=== PATIENT | female | born 1980 | race Caucasian/White ===

== ENCOUNTER 2019-08-21 14:31 | Outpatient (CLI) | payer OTHER ==
--- NOTE | 2019-08-21 16:43 | Mammography Report ---
Reason: HX OF ABNORMAL MAMMOGRAM Procedure Date: 08/21/2019 Accession Number: [id number] / [id number] Procedure: JUSTYN - Diagnostic Dig Bilat CPT Code: Final Report FULL RESULT: EXAM: Diagnostic Dig Bilat DATE: 08/21/2019 3:26 PM CLINICAL HISTORY: Diagnostic examination. Reported history of left breast lump. TECHNIQUE: (B) - Bilateral CC and MLO views were obtained. Left ML images are obtained. COMPARISON: None PARENCHYMAL PATTERN: (A) - The breast(s) demonstrate(s) scattered fibroglandular densities. FINDINGS: There are no suspicious masses, calcifications, or areas of distortion. IMPRESSION: Negative examination. BI-RADS category 1. RECOMMENDATION: (ANNUAL) - Recommend routine annual screening mammography. BI-RADS CATEGORY: (1) - Negative. STANDARD QUALIFYING STATEMENTS: 1. This examination was not reviewed with the aid of Computer-Aided Detection (CAD). 2. A negative or benign imaging report should not preclude biopsy if clinically suspicious findings are present. 3. Dense breasts may obscure an underlying neoplasm. 4. This examination was reviewed without the aid of 3D breast imaging (tomosynthesis).
== END 2019-08-21 14:32 | disposition home or self-care (01) ==
LOC: DI 14:31
PROVIDERS: ATTEND General Practice
DX: R92.8 Other abnormal and inconclusive findings on diagnostic imaging of breast (principal)
CPT/HCPCS: 77066

== ENCOUNTER 2021-08-30 11:18 | Outpatient (CLI) | payer OTHER ==
--- NOTE | 2021-08-31 08:19 | Mammography Report ---
BILATERAL DIGITAL SCREENING MAMMOGRAM 3D/2D: 08/30/2021 CLINICAL: Routine screening. Comparison is made to exam dated: 08/21/2019 mammogram - [facility]. There are sc attered fibroglandular elements in both breasts. There is an oval low density focal asymmetry with an indistinct and circumscribed margin in the right breast at 6 o'clock middle depth. No other significant masses, calcifications, or other findings are seen in either breast. IMPRESSION: INCOMPLETE: NEEDS ADDITIONAL IMAGING EVALUATION The oval low density focal asymmetry in the right breast is indeterminate. Mediolateral and spot com pression views as well as additional views with possible ultrasound are recommended. This exam was interpreted at Station ID: [id number]. NOTE: For mammograms, a report in lay terms will be sent to the patient. Approximately 15% of breast malignancies will not be visualized mammographically. In the management of a palpable breast mass, a negative mammogram must not discourage biopsy of a clinically suspicious lesion. Electronically Signed By: Chuck al/deysi:08/30/2021 12:34:55 ACR BI-RADS Category 0: Incomplete 3340F PARENCHYMAL PATTERN: (A) - The breast(s) demonstrate(s) scattered fibroglandular densities. BI-RADS CATEGORY: (0) - 0 Mammo and [place] [id number] Immediate follow-up LATERALITY: (B)
== END 2021-08-30 11:19 | disposition home or self-care (01) ==
LOC: DI.N 11:18
DX: Z12.31 Encounter for screening mammogram for malignant neoplasm of breast (principal); R92.8 Other abnormal and inconclusive findings on diagnostic imaging of breast

== ENCOUNTER 2021-09-29 10:48 | Outpatient (CLI) | payer OTHER ==
--- NOTE | 2021-09-30 12:04 | Ultrasound Report ---
LIMITED ULTRASOUND OF RIGHT BREAST AND AXILLA: 09/29/2021 CLINICAL: Patient returns today to evaluate a focal asymmetry in the right breast. Comparison is made to exams dated: 09/29/2021 mammogram, 08/30/2021 mammogram, and 08/21/2019 mammog [facility]. Color flow and real-time ultrasound of the right breast 4-8 o'clock, and axilla regions were performe d. Ren scale images of the real-time examination were reviewed. There is a 0.4 cm x 0.3 cm x 0.2 cm oval mass with a circumscribed margin in the right breast at 7 o' clock middle depth 7 cm from the nipple. This oval mass is hypoechoic. This correlates with mammogr aphy findings. Color flow imaging demonstrates that there is no vascularity present. There also is a 0.7 cm x 0.6 cm x 0.2 cm oval cyst with a septated internal wall in the right breast at 8 o'clock posterior depth 8 cm from the nipple. This oval cyst is hypoechoic. This correlates as an incidental finding. Color flow imaging demonstrates that there is no vascularity present. No significant abnormalities were seen sonographically in the right axilla. IMPRESSION: PROBABLY BENIGN The 0.4 cm x 0.3 cm x 0.2 cm oval mass in the right breast at 7 o'clock middle depth most likely is a complicated cyst or a lymph node and is probably benign. The 0.7 cm x 0.6 cm x 0.2 cm oval cyst in the right breast at 8 o'clock posterior depth is consistent with a complicated cyst and is probably benign. A follow-up right mammogram and an ultrasound in 6 months is recommended to demonstrate stability. This exam was interpreted at Station ID: [id number]. Electronically Signed By: Keon tee/deysi:09/29/2021 12:58:42 Ultrasound BI-RADS: 3 Probably benign BI-RADS CATEGORY: (3) - 3 Mammo and [place] [id number] 6 month follow-up LATERALITY: (R)
--- NOTE | 2021-09-30 12:04 | Mammography Report ---
UNILATERAL RIGHT DIGITAL DIAGNOSTIC MAMMOGRAM 3D/2D: 09/29/2021 CLINICAL: Patient returns today to evaluate a focal asymmetry in the right breast. Comparison is made to exams dated: 08/30/2021 mammogram, 08/21/2019 mammogram - [facility], and 05/11/2015 ultrasound - [facility]. There are scat tered fibroglandular elements in right breast. There is a 0.5 cm irregular focal asymmetry in the right breast at 6 o'clock middle depth. This is s een in additional views. A few additional small focal asymmetries are seen in the inferior right br east, which appear to be stable when compared to the prior exam from 2019 given differences between d igital mammography and tomosynthesis. No other significant masses or calcifications are seen in the breast. IMPRESSION: INCOMPLETE: NEEDS ADDITIONAL IMAGING EVALUATION The 0.5 cm irregular focal asymmetry in the right breast resembles a lymph node and is indeterminate. An ultrasound is recommended. This exam was interpreted at Station ID: [id number]. NOTE: For mammograms, a report in lay terms will be sent to the patient. Approximately 15% of breast malignancies will not be visualized mammographically. In the management of a palpable breast mass, a negative mammogram must not discourage biopsy of a clinically suspicious lesion. Electronically Signed By: Keon tee/deysi:09/29/2021 12:56:00 ACR BI-RADS Category 0: Incomplete 3340F PARENCHYMAL PATTERN: (A) - The breast(s) demonstrate(s) scattered fibroglandular densities. BI-RADS CATEGORY: (0) - 0 Ultrasound [id number] Immediate follow-up LATERALITY: (R)
== END 2021-09-29 10:49 | disposition home or self-care (01) ==
LOC: DI 10:48
PROVIDERS: ATTEND Student in an Organized Health Care Education/Training Program
DX: R92.8 Other abnormal and inconclusive findings on diagnostic imaging of breast (principal)

== ENCOUNTER 2021-11-16 13:32 | Outpatient (CLI) | payer OTHER ==
[2021-11-16] MEDS ORDERED: GADOBUTROL 10 MMOL/10 ML VIAL ONE (13:50)
--- NOTE | 2021-11-16 16:03 | MRI Report ---
PROCEDURE: Brain W/WO INDICATIONS: HYPERPROLACTINEMIA CONTRAST: IV CONTRAST: Gadavist ml: 8.6 TECHNIQUE: Noncontrast axial T1 spin echo, axial T2 fast spin echo, sagittal and axial FLAIR, coronal T2 fast sp in echo, axial gradient echo, axial diffusion and ADC through the brain. After the administration of contrast, axial and coronal T1 spin echo with fat saturation through the brain. COMPARISON: None. FINDINGS: Image quality: Excellent. CSF spaces: Basal cisterns are patent. No extra-axial fluid collections. Ventricles are normal in size and shape. Brain: No midline shift. No intracranial bleeds or masses. No abnormal intracranial enhancement. There is cerebral volume loss for age. There is periventricular white matter chronic small vessel is chemic change. The brainstem appears normal. Diffusion-weighted images demonstrate no acute ischemi c insults. No chronic ischemic insults. Normal intravascular flow voids are present. Skull and face: Calvarial marrow is normal in signal. Orbits appear normal. Sinuses: Sinuses and mastoids appear clear. IMPRESSION: Normal MRI of the brain and pituitary. Reviewed by: Maximiliano Shea MD on 11/16/2021 4:02 PM PST Approved by: Maximiliano Shea MD on 11/16/2021 4:02 PM PST Station ID: [id number]
[2021-11-17] MEDS ORDERED: GADOBUTROL 10 MMOL/10 ML VIAL IVP ONE (16:15)
== END 2021-11-16 13:33 | disposition home or self-care (01) ==
LOC: DI 13:32
PROVIDERS: ATTEND Advanced Practice Midwife
DX: E22.1 Hyperprolactinemia (principal)
CPT/HCPCS: 70553; A9585

== ENCOUNTER 2023-01-09 10:51 | Outpatient (CLI) | payer OTHER | END 2023-01-09 23:59 | disposition EMS.NT | LOC: EMS 10:51 | DX: R07.9 Chest pain, unspecified (principal); R06.02 Shortness of breath; R20.0 Anesthesia of skin; F41.9 Anxiety disorder, unspecified ==

== ENCOUNTER 2023-01-09 11:54 | Emergency (ER) | payer OTHER ==
--- NOTE | 2023-01-09 12:32 | ED Physician Documentation ---
History of Present Illness - Stated complaint Stated Complaint: SOA,DAZED,HIGH HEART RATE - Chief complaint Chief Complaint: General - History obtained from History obtained from: Patient - Additonal information Additional information: 42-year-old woman with history of hypertension, tubal ligation started to feel ill this morning around 830 with lightheadedness, sweatiness, shortness of breath especially when supine and she noted tachycardia as on her watch as high as in the 150s without other alarms noting that it is an apple iWatch 8. She had a recent right ankle injury. No calf pain or though and no history of thromboembolic disease. PD PAST MEDICAL HISTORY - Allergies Allergies/Adverse Reactions: Allergies Allergy/AdvReac Type Severity Reaction Status Date / Time No Known Drug Allergies Allergy Verified 01/09/23 12:03 PD ED PE NORMAL - Vitals Vital signs reviewed: Yes - General General: Alert and oriented X 3, No acute distress - HEENT HEENT: PERRL, EOMI - Neck Neck: Supple, no meningeal sign, No bony TTP - Cardiac Cardiac: RRR, No murmur - Respiratory Respiratory: No respiratory distress, Clear bilaterally - Abdomen Abdomen: Non tender - Extremities Extremities: No edema, No calf tenderness / cord - Neuro Neuro: Alert and oriented X 3, Normal speech Results - Vitals Vitals: Vital Signs - 24 hr 01/09/23 01/09/23 01/09/23 12:03 12:33 13:08 Temperature 36.8 C Heart Rate 86 69 65 Respiratory 24 21 21 Rate Blood Pressure 130/87 H 134/83 H 124/76 O2 Saturation 100 100 100 01/09/23 01/09/23 13:48 14:41 Temperature Heart Rate 59 L 64 Respiratory 19 16 Rate Blood Pressure 121/100 H 105/72 O2 Saturation 96 99 Oxygen O2 Source Room air - EKG (time done) 1206 EKG releavant findings:: EKG personally interpreted by author of this note. Relevant findings are: Rate: Rate (enter#) (86) Rhythm: NSR [place]: Normal Intervals: Normal AK QRS: Normal Ischemia: Normal ST segments - Labs Labs: Laboratory Tests 01/09/23 01/09/23 01/09/23 12:32 12:32 12:32 WBC 10.1 RBC 3.93 L Hgb 12.7 Hct 38.9 MCV 99.0 MCH 32.3 H MCHC 32.6 RDW 13.2 Plt Count 352 MPV 9.2 Neut # (Auto) 7.0 H Lymph # (Auto) 2.3 [place] # (Auto) 0.7 Eos # (Auto) 0.1 Baso # (Auto) 0.1 Absolute Nucleated RBC 0.00 Nucleated RBC % 0.0 D-Dimer VBG pH 7.442 H VBG pCO2 34.2 L VBG pO2 42.9 VBG HCO3 22.8 L VBG Total CO2 23.9 L VBG O2 Saturation 82.9 H VBG Base Excess -0.7 Sodium 139 Potassium 3.8 Chloride 108 Carbon Dioxide 24 Anion Gap 7.0 BUN 9 Creatinine 0.5 Estimated GFR (MDRD) 135 Glucose 124 H Calcium 9.5 Magnesium 1.5 L Total Bilirubin 0.2 AST 20 ALT 18 Alkaline Phosphatase 44 Troponin I High Sens Total Protein 6.7 Albumin 3.9 Globulin 2.8 Albumin/Globulin Ratio 1.4 01/09/23 01/09/23 12:32 12:32 WBC RBC Hgb Hct MCV MCH MCHC RDW Plt Count MPV Neut # (Auto) Lymph # (Auto) [place]quois # (Auto) Eos # (Auto) Baso # (Auto) Absolute Nucleated RBC Nucleated RBC % D-Dimer 255.7 H VBG pH VBG pCO2 VBG pO2 VBG HCO3 VBG Total CO2 VBG O2 Saturation VBG Base Excess Sodium Potassium Chloride Carbon Dioxide Anion Gap BUN Creatinine Estimated GFR (MDRD) Glucose Calcium Magnesium Total Bilirubin AST ALT Alkaline Phosphatase Troponin I High Sens 2.8 Total Protein Albumin Globulin Albumin/Globulin Ratio - Rads (name of study) CT a chest and chest x-ray were normal Relevant Findings:: Final report received, EMP independent interpretation of test PD Medical Decision Making - ED course ED course: 42-year-old woman presents with rapid heart rate lightheadedness sweatiness and shortness of breath with tachycardias at home. Differential diagnosis would include anxiety, PE, pneumonia. CBC reviewed and unremarkable. D-dimer reviewed and very borderline high at 255.7 with the high end of normal being 255, venous blood gas showing mild respiratory alkalosis. CMP and troponin negative. Chest x-ray normal, given elevated D-dimer followed by CT angiography which was negative. Departure - Departure Disposition: 01 Home, Self Care Clinical Impression: Tachycardia Dyspnea Qualifiers: Dyspnea type: shortness of breath Qualified Code(s): R06.02 - Shortness of breath; R06.00 - Dyspnea, unspecified; R06.01 - Orthopnea Condition: Good Record reviewed to determine appropriate education?: Yes Instructions: ED Dyspnea Shortness of Breath Comments: The cause of your symptoms is unclear. CT angiography of the chest was negative ruling out blood clot/pneumonia. EKG and basic lab work was unremarkable. [place] consider specifically echocardiography and/or Holter monitor/Zio patch. Return if worse. Note for your records that you did receive 1 mg of Ativan today for anxiety. Do not drive/Operate machinery for the Remainder of the day.
[2023-01-09 12:37] LABS: BASOPHILS # (AUTO) 0.1 10^3/uL (0.0-0.1); BASOPHILS % (AUTO) 0.5 %; EOSINOPHILS # (AUTO) 0.1 10^3/uL (0.0-0.7); EOSINOPHILS % (AUTO) 0.9 %; HCT - HEMATOCRIT 38.9 % (37.0-47.0); HGB - HEMOGLOBIN 12.7 g/dL (12.0-16.0); LYMPHOCYTES # (AUTO) 2.3 10^3/uL (1.5-3.5); LYMPHOCYTES % (AUTO) 22.3 %; MEAN CORPUSCULAR HEMOGLOBIN 32.3 pg (27.0-31.0); MEAN CORPUSCULAR HGB CONC 32.6 g/dL (32.0-36.0); MEAN PLATELET VOLUME 9.2 fL (7.9-10.8); MONOCYTES # (AUTO) 0.7 10^3/uL (0.0-1.0); NEUTROPHILS % (AUTO) 68.8 %; PLT - PLATELET COUNT 352 10^3/uL (130-450); RED BLOOD COUNT 3.93 10^6/uL (4.20-5.40); RED CELL DISTRIBUTION WIDTH 13.2 % (12.0-15.0); WHITE BLOOD COUNT 10.1 x10^3/uL (4.8-10.8)
[2023-01-09 12:38] LABS: VBG HCO3 22.8 mmol/L (23-28); VBG PCO2 34.2 mmHg (41-51); VBG PH 7.442 (7.31-7.41); VBG PO2 42.9 mmHg (25-47)
[2023-01-09 12:39] LABS: VBG BASE EXCESS -0.7 mmol/L (-2 - +2); VBG OXYGEN SATURATION 82.9 % (60-80); VBG TOTAL CO2 23.9 mmol/L (24-29)
--- NOTE | 2023-01-09 12:52 | XRAY Report ---
PROCEDURE: Chest 1 View X-Ray INDICATIONS: dyspnea TECHNIQUE: One view of the chest was acquired. COMPARISON: None. FINDINGS: Surgical changes and devices: None. Lungs and pleura: No pleural effusions or pneumothorax. Lungs are clear. Mediastinum: Mediastinal contours appear normal. Heart size is normal. Bones and chest wall: No suspicious bony lesions. Overlying soft tissues appear unremarkable. IMPRESSION: No acute cardiopulmonary abnormality. Reviewed by: Renzo Zavala on 01/09/2023 12:51 PM TEIR Approved by: Renzo Zavala on 01/09/2023 12:51 PM PDT Station ID: [id number]
[2023-01-09 13:00] LABS: ALBUMIN 3.9 g/dL (3.2-5.5); ALBUMIN/GLOBULIN RATIO 1.4 (1.0-2.2); BILIRUBIN,TOTAL 0.2 mg/dL (0.2-1.0); CALCIUM 9.5 mg/dL (8.5-10.3); CREATININE 0.5 mg/dL (0.4-1.0); MAGNESIUM 1.5 mg/dL (1.7-2.8); POTASSIUM 3.8 mmol/L (3.5-5.0); TOTAL PROTEIN 6.7 g/dL (6.7-8.2)
[2023-01-09] MEDS ORDERED: iohexoL-300 100 ML VIAL ONE (13:14)
[2023-01-09] MEDS ORDERED: LORazepam 2 MG/ML VIAL IVP STA (14:03)
--- NOTE | 2023-01-09 14:56 | CT Report ---
PROCEDURE: ANGIO CHEST W/WO INDICATIONS: dyspnea, presyncope, high dimer CONTRAST: 80ml Omnipaque 300 TECHNIQUE: After the administration of intravenous contrast, 2 mm axial images were acquired from the pulmonary apices to the posterior costophrenic angles during the arterial phase. In addition, 1 mm lung kernel and 5 mm soft tissue kernel reconstructions were performed. 3-dimensional coronal oblique maximum int ensity projection (MIP) reformats, 8 mm axial MIP, and 5 mm coronal and sagittal MPR reformats were t hen performed through the thorax. For radiation dose reduction, the following was used: automated exp osure control, adjustment of mA and/or kV according to patient size. COMPARISON: None FINDINGS: Image quality: Excellent. Large vessels: No filling defect within the opacified pulmonary arteries. No evidence of acute aortic syndrome. No thoracic aortic aneurysm. Lungs and pleura: No pleural effusions. No pneumothorax. No suspicious pulmonary nodules which requi re follow up. Mediastinum: Heart size is normal. No pericardial effusions. No mediastinal adenopathy by size criter ia. Small hiatal hernia. Chest wall and lower neck: Thyroid is unremarkable. No axillary or supraclavicular adenopathy by size . Bones: No aggressive osseous abnormality. Upper Abdomen: Unremarkable. IMPRESSION: No pulmonary embolus or findings to explain the patient's dyspnea. Reviewed by: Max Kaminski on 01/09/2023 2:55 PM PDT Approved by: Max Kaminski on 01/09/2023 2:55 PM PDT Station ID: [id number]
[2023-01-09 15:25] VITALS: BP 112/67
[2023-01-09] MEDS ORDERED: iohexoL-300 100 ML VIAL IVP ONE (16:19)
== END 2023-01-09 15:30 | disposition home or self-care (01) ==
LOC: ED 11:54
DX: R00.0 Tachycardia, unspecified (principal); R06.01 Orthopnea; R06.00 Dyspnea, unspecified; F41.9 Anxiety disorder, unspecified
CPT/HCPCS: 36415; 71045; 71275; 80053; 82803; 83735; 84484; 85025; 85379; 93005; 96374; 99283; 99285; J2060; Q9967

== ENCOUNTER 2024-04-09 08:00 | Outpatient (CLI) | payer OTHER | END 2024-04-09 23:59 | disposition home or self-care (01) | LOC: LAB.N 08:00 | PROVIDERS: ATTEND Nurse Practitioner | DX: N39.0 Urinary tract infection, site not specified (principal) | CPT/HCPCS: 87077; 87086; 87181 ==